=== PATIENT | female | born 1990 | race African-American/Black ===

== ENCOUNTER 2016-09-30 20:43 | Emergency (ER) | payer OTHER ==
[~2016-09-30 20:43] MED LIST: ANTI2TAB PO; ZOFR4TAB3 PO
[2016-09-30 20:45] VITALS: BP 119/73; PULSE 118; RESP 16; TEMP 102.8; O2SAT 100
[2016-09-30] MEDS ORDERED: IBUPROFEN 800 MG TAB PO ONE (22:45)
--- NOTE | 2016-09-30 22:54 | PD ---
HPI Chief Complaint: Cold / Flu Symptoms Time Seen by Provider: 22:52 Travel History International Travel<30 days: No Contact w/Intl Traveler<30days: No Traveled to known affect area: No History of Present Illness HPI Patient comes in complaining of flu like symptoms that began yesterday. Patient complaining of fever, body aches, ear pain, sore throat, and nausea. Patient denies any vomiting, abdominal pain, chest pain, shortness of breath, cough, loss or change in bowel or bladder, , headache, or numbness or tingling anywhere. Patient states that her son was sick with similar symptoms however he is better and now she is sick. Patient is been using over-the- counter flu medication with improvement of her body aches. Denies anything making it worse. PFSH Past Medical History Medical History: Denies Significant Hx Diminished Hearing: No ?: Not Past Surgical History Surgical History: No Previous Surgery Social History Alcohol Use: Yes (OCCASIONALLY ) Tobacco Use: No Substance Use: No Allergies-Medications (Allergen,Severity, Reaction): Coded Allergies: No Known Allergies (Unverified , 08/26/15) Reported Meds & Prescriptions Reported Meds & Active Scripts Active Bactrim DS (Sulfamethoxazole-Trimethoprim) 800-160 Mg Tab 1 Tab PO BID Anti-Diarrheal (Loperamide HCl) 2 Mg Tab 1 Tab PO Q4 PRN Take 2 tablets initially, then one tablet after each unformed stools, but not more than 8 tablets total a day. Do not take for more than 2 days. Zofran ODT (Ondansetron HCl) 4 Mg Tab 4 Mg PO Q6 PRN May substitute, non-ODT form Review of Systems Except as stated in HPI: all other systems reviewed are Neg Physical Exam Narrative GENERAL: Well-developed, well nourished, in no acute distress, and non-ill appearing. SKIN: Focused skin assessment warm and dry. HEAD: Atraumatic. Normocephalic. EYES: Pupils equal and round. EOMI. No scleral icterus. No injection or drainage. ENT: No nasal bleeding or discharge. Mucous membranes pink and moist. Tympanic membranes pearly benoit bilaterally. Posterior pharynx nonerythematous without exudate. Uvula is midline. No tenderness to facial sinuses to palpation. NECK: Trachea midline. No cervical lymphadenopathy. Supple. No nuclear rigidity. CARDIOVASCULAR: Regular rate and rhythm. No murmur appreciated. RESPIRATORY: No accessory muscle use. No respiratory distress. Clear to auscultation. Breath sounds equal bilaterally. MUSCULOSKELETAL: No obvious deformities. No clubbing. No cyanosis. No edema. Full range of motion. NEUROLOGICAL: Awake and alert. No obvious cranial nerve deficits. Motor grossly within normal limits. Normal speech. PSYCHIATRIC: Appropriate mood and affect; insight and judgment normal. Data Data Last Documented VS Vital Signs Date Time Temp Pulse Resp B/P Pulse Ox O2 Delivery O2 Flow Rate FiO2 10/01/16 01:20 99.8 96 18 10/01/16 00:10 115/59 100 Orders Ibuprofen (Motrin) (09/30/16 22:45) Urinalysis - C+S If Indicated (09/30/16 22:45) Group A Rapid Strep Screen (09/30/16 22:45) Influenzae A/B Antigen (09/30/16 23:11) Urine Culture (09/30/16 23:00) Strep Culture (Group A) (09/30/16 23:00) Sulfamet-Trimeth Ds 800-160 Mg (Bactrim (09/30/16 23:45) Ondansetron Odt (Zofran Odt) (10/01/16 00:15) Labs Laboratory Tests Test 09/30/16 23:00 Urine Color YELLOW Urine Turbidity HAZY Urine pH 6.0 Urine Specific [place] 1.038 Urine Protein 100 mg/dL Urine Glucose (UA) NEG mg/dL Urine Ketones 40 mg/dL Urine Occult Blood NEG Urine Nitrite POS Urine Bilirubin NEG Urine Urobilinogen 2.0 MG/DL Urine Leukocyte Esterase NEG Urine RBC 1 /hpf Urine WBC 3 /hpf Urine Squamous Epithelial 3 /hpf Cells Urine Transitional Epithelial <1 /hpf Cells Urine Bacteria MANY /hpf Urine Mucus MANY /lpf Microscopic Urinalysis Comment CULTURE INDICATED MDM Medical Decision Making Medical Screen Exam Complete: Yes Emergency Medical Condition: Yes Differential Diagnosis Influenza, pharyngitis, viral syndrome, UTI, other Narrative Course The patient presentation with history and evaluation are consistent with UTI. The patient looks great and is tolerating fluids. The patient was discharged on antibiotics and given warnings to return if condition worsens in any way, worsening fever, vomiting and unable to tolerate medications or fluids, back pain or as needed. The patient agrees with plan of care. There is no clinical evidence to suggest appendicitis, or vascular pathology ( AAA, etc.). The patient was instructed to follow up with their physician or return here in 12 first for recheck. Patient agreed with plan of care. Patient in no obvious distress upon re-evaluation. Reports she is feeling much better. All pertinent laboratory result(s) discussed with patient. Patient was asked if they wanted to speak to my attending, which the patient did not wish to do at this time. Discussed patient with Dr. Kay prior to discharge, who is in agreement with plan of care and disposition. Any questions/concerns in reference to patient diagnosis/condition discussed and clarified prior to patient's discharge. Reinforced sheer importance of close follow up with patient 's primary physician or primary care clinic or return here in 12-24 hours for recheck. Instructed patient to return to ED immediately, if symptoms return/ worsen. Pt showed understanding of above instructions. Further instructions and recommendations were detailed in discharge paperwork. Pt ambulated without difficulty out of ED at discharge. Diagnosis Primary Impression: Urinary tract infection Qualified Code: N30.00 - Acute cystitis without hematuria Patient Instructions: General Instructions, Urinary Tract Infection in Women ( ED) Additional Instructions: Follow-up with your primary care physician or return here in 12-24 hours for recheck. Take all medication as prescribed. Use [id number] Tylenol and ibuprofen as needed for pain and/or fever control. Follow instructions on the packaging. Drink plenty of of non-caffeinated and nonalcoholic fluids. Return to the emergency department sooner if symptoms get worse, unable to tolerate fluid, shortness breath, chest pain, abdominal pain, or for other concerns. Med/Other Pt SpecificInfo: Prescription(s) given Scripts Sulfamethoxazole-Trimethoprim (Bactrim DS)800-160 Mg Tab1 Tab PO BID #20 TAB Ref 0 Prov:Pat Kay DO 10/01/16 Disposition: 01 DISCHARGE HOME Condition: Stable Mario Turk Sep 30, 2016 22:54
[2016-09-30 23:31] LABS: BACTERIA, URINE MANY /hpf; BLOOD, URINE NEG (NEG); COMMENT (UR) CULTURE INDICATED; CULTURE IF INDICATED CULTURE INDICATED; GLUCOSE,URINE NEG (NEG); KETONE, URINE 40 mg/dL (NEG); MUCUS URINE MANY /lpf (OCC); NITRITE,URINE POS (NEG); SQUAMOUS EPITHELIAL CELL URINE 3 /hpf (0-5); TRANSITIONAL EPI CELLS, URINE <1 /hpf; URINE COLOR YELLOW (YELLW/STRAW)
[2016-09-30] MEDS ORDERED: SULFAMETHOXAZOLE-TRIMETHOPRIM DS 800-160 MG TAB PO ONE (23:45)
[2016-10-01 00:10] VITALS: BP 115/59; PULSE 106; RESP 18; TEMP 100; O2SAT 100
[2016-10-01] MEDS ORDERED: ONDANSETRON ODT 4 MG TAB PO ONE (00:15)
[2016-10-01] MEDS ORDERED: BACT800T5 PO (01:15)
[2016-10-01 01:20] VITALS: PULSE 96; RESP 18; TEMP 99.8
== END 2016-10-01 01:26 | disposition home or self-care (01) ==
LOC: NEPD 20:43
DX: N39.0 Urinary tract infection, site not specified (principal); H92.09 Otalgia, unspecified ear; J02.9 Acute pharyngitis, unspecified; R11.0 Nausea; Z79.899 Other long term (current) drug therapy
CPT/HCPCS: 81001; 87077; 87081; 87086; 87186; 87804; 87880; 99283

== ENCOUNTER 2016-10-03 12:41 | Emergency (ER) | payer OTHER ==
[~2016-10-03] VITALS: Ht 162.6 cm; Wt 68.0 kg
[~2016-10-03 12:41] MED LIST changes: +BACT800T5 PO
[2016-10-03 12:43] VITALS: BP 130/70; PULSE 124; RESP 17; TEMP 102; O2SAT 100
[2016-10-03] MEDS ORDERED: DEPO150I IM (13:52)
--- NOTE | 2016-10-03 13:54 | PD ---
HPI Chief Complaint: Complaint Time Seen by Provider: 13:53 Travel History International Travel<30 days: No Contact w/Intl Traveler<30days: No Traveled to known affect area: No History of Present Illness HPI 26-year-old female came to the emergency room with history of lower back pain radiating up to her neck. Patient says that she was in the emergency room couple days ago with lower back pain and feeling very sick. She was diagnosed with UTI and pyelonephritis. She was discharged home on Bactrim. She has taken 4 doses of it. She feels better compared to what she fell 2 days ago but the back pain still persists. Her temperature was 102. She appears to be in mild distress. No history of headache, neck stiffness, photophobia. She's been taking ibuprofen for her fever. [facility] Past Medical History Narrative Medical List of her past medical, surgical, social and family history was reviewed from the nursing note. Medical History: Denies Significant Hx Diminished Hearing: No ?: Not LMP: 2013 DEPO SHOT Para: 2 Past Surgical History Surgical History: No Previous Surgery Social History Alcohol Use: Yes (OCCASIONALLY ) Tobacco Use: No Substance Use: No Allergies-Medications (Allergen,Severity, Reaction): Coded Allergies: No Known Allergies (Unverified , 10/03/16) Comments No known drug allergies. Reported Meds & Prescriptions Reported Meds & Active Scripts Active Bactrim DS (Sulfamethoxazole-Trimethoprim) 800-160 Mg Tab 1 Tab PO BID Reported Depo-Provera Inj (Medroxyprogesterone Inj) 150 Mg/Ml Inj 150 Mg IM Q90D Narrative Medication List of her home medications reviewed from the nursing note. Review of Systems Except as stated in HPI: all other systems reviewed are Neg Physical Exam Narrative GENERAL: Awake, alert, mild distress SKIN: Focused skin assessment warm/dry. HEAD: Atraumatic. Normocephalic. EYES: Pupils equal and round. No scleral icterus. No injection or drainage. ENT: No nasal bleeding or discharge. Mucous membranes pink and moist. NECK: Trachea midline. No JVD. Neck is supple, no signs of meningismus or neck stiffness CARDIOVASCULAR: Regular rate and rhythm. No murmur appreciated. RESPIRATORY: No accessory muscle use. Clear to auscultation. Breath sounds equal bilaterally. GASTROINTESTINAL: Abdomen soft, non-tender, nondistended. Hepatic and splenic margins not palpable. Bilateral flank pain. MUSCULOSKELETAL: No obvious deformities. No clubbing. No cyanosis. No edema. NEUROLOGICAL: Awake and alert. No obvious cranial nerve deficits. Motor grossly within normal limits. Normal speech. PSYCHIATRIC: Appropriate mood and affect; insight and judgment normal. Data Data Last Documented VS Vital Signs Date Time Temp Pulse Resp B/P Pulse Ox O2 Delivery O2 Flow Rate FiO2 10/03/16 16:21 99 Room Air 10/03/16 16:21 87 18 10/03/16 16:07 92/65 10/03/16 12:43 102.0 Orders Complete Blood Count With Diff (10/03/16 14:08) Comprehensive Metabolic Panel (10/03/16 14:08) Lactic Acid Sepsis Protocol (10/03/16 14:08) Urinalysis - C+S If Indicated (10/03/16 14:08) Blood Culture (10/03/16 14:08) Chest, Single Ap (10/03/16 14:08) Blood Glucose (10/03/16 14:08) Ecg Monitoring (10/03/16 14:08) Iv Access Insert/Monitor (10/03/16 14:08) Oximetry (10/03/16 14:08) Oxygen Administration (10/03/16 14:08) Acetaminophen (Tylenol) (10/03/16 14:15) Sodium Chlor 0.9% 1000 Ml Inj (Ns 1000 M (10/03/16 14:15) Sodium Chlor 0.9% 1000 Ml Inj (Ns 1000 M (10/03/16 14:15) Potassium Chloride Eff (K-Lyte Cl Eff) (10/03/16 15:45) Influenzae A/B Antigen (10/03/16 15:53) Labs Laboratory Tests Test 10/03/16 10/03/16 14:48 16:00 White Blood Count 2.3 TH/MM3 Red Blood Count 3.95 MIL/MM3 Hemoglobin 13.4 GM/DL Hematocrit 38.4 % Mean Corpuscular Volume 97.2 FL Mean Corpuscular Hemoglobin 34.0 PG Mean Corpuscular Hemoglobin 35.0 % Concent Red Cell Distribution Width 12.3 % Platelet Count 169 TH/MM3 Mean Platelet Volume 7.2 FL Neutrophils (%) (Auto) 58.6 % Lymphocytes (%) (Auto) 25.0 % Monocytes (%) (Auto) 16.2 % Eosinophils (%) (Auto) 0.0 % Basophils (%) (Auto) 0.2 % Neutrophils # (Auto) 1.4 TH/MM3 Lymphocytes # (Auto) 0.6 TH/MM3 Monocytes # (Auto) 0.4 TH/MM3 Eosinophils # (Auto) 0.0 TH/MM3 Basophils # (Auto) 0.0 TH/MM3 CBC Comment DIFF FINAL Differential Comment Sodium Level 138 MEQ/L Potassium Level 3.4 MEQ/L Chloride Level 107 MEQ/L Carbon Dioxide Level 22.1 MEQ/L Anion Gap 9 MEQ/L Blood Urea Nitrogen 8 MG/DL Creatinine 0.87 MG/DL Estimat Glomerular Filtration 95 ML/MIN Rate Random Glucose 67 MG/DL Lactic Acid Level 0.8 mmol/L Calcium Level 8.3 MG/DL Total Bilirubin 0.2 MG/DL Aspartate Amino Transf 24 U/L (AST/SGOT) Alanine Aminotransferase 34 U/L (ALT/SGPT) Alkaline Phosphatase 70 U/L Total Protein 7.3 GM/DL Albumin 3.5 GM/DL Urine Color YELLOW Urine Turbidity CLEAR Urine pH 6.5 Urine Specific [place] 1.023 Urine Protein 30 mg/dL Urine Glucose (UA) NEG mg/dL Urine Ketones 10 mg/dL Urine Occult Blood NEG Urine Nitrite NEG Urine Bilirubin NEG Urine Urobilinogen 4.0 MG/DL Urine Leukocyte Esterase NEG Urine WBC 1 /hpf Urine Squamous Epithelial <1 /hpf Cells Urine Mucus FEW /lpf Microscopic Urinalysis Comment CATH-CULT NOT IND MDM Medical Decision Making Medical Screen Exam Complete: Yes Emergency Medical Condition: Yes Medical Record Reviewed: Yes Differential Diagnosis Pyelonephritis, dehydration, outpatient treatment failure Narrative Course 2:22 PM I looked at her urine culture that was done from couple days ago. It grew Escherichia coli and was sensitive to Bactrim. However the fact that patient still continues to have fever is little bit worrisome. Although it has been 48 hours since patient has been taking antibiotics and admitted take almost 72 hours in case of UTI to get better. However I have ordered blood test and UA. Awaiting for those test to be done and resulted. Patient is getting IV fluid as well. 3:52 PM blood test result is back and patient has leukopenia with elevated monocyte count. Her potassium is slightly low. I replaced the potassium. Patient is getting IV fluid bolus. Awaiting for the UA. 4:53 PM UA is negative. I'll ask her to finish the Bactrim. She may have some additional viral illness. She has received 2 L of IV fluid bolus and I'm comfortable with that. Patient will be discharged home. Procedures EKG Prior to Arrival: No Diagnosis Primary Impression: Viral illness Additional Impression: Fever Qualified Code: R50.9 - Fever, unspecified fever cause Referrals: Primary Care Physician 3 days Additional Instructions: Please return to the ER over the weekend if the symptoms worsen or any other new concerns. Otherwise follow-up with your primary care doctor on Thursday. Finish the course of the Bactrim. Take Motrin/Tylenol/ibuprofen/Advil for fever. Med/Other Pt SpecificInfo: No Change to Meds Disposition: 01 DISCHARGE HOME Condition: Stable Sachin Alexis MD Oct 03, 2016 13:54
[2016-10-03] MEDS ORDERED: ACETAMINOPHEN 325 MG TAB PO ONE (14:15)
[2016-10-03] MEDS ORDERED: SODIUM CHLOR 0.9% 1000 ML INJ 1,000 ML IV ONE ×2 (14:15)
--- NOTE | 2016-10-03 14:57 | RADRPT ---
EXAM DATE/TIME: 10/03/2016 14:21 [place] COMPARISON: No previous studies available for comparison. INDICATIONS : Back pain, no known trauma MEDICAL HISTORY : None. SURGICAL HISTORY : None. ENCOUNTER: Initial ACUITY: 4 - 6 days PAIN SCORE: 8/10 LOCATION: Bilateral chest FINDINGS: Portable AP view of the chest demonstrates a normal-sized cardiac silhouette. No effusion, consolidat ion, or pneumothorax is visualized. The bones and soft tissues demonstrate no acute abnormality. Ther e is a single left nipple piercing. CONCLUSION: Normal single view chest x-ray. Josh Duran MD on October 03, 2016 at 14:54 Board Certified Radiologist. This report was verified electronically.
[2016-10-03 15:09] LABS: AUTOMATED NEUTROPHIL # 1.4 TH/MM3 (1.8-7.7); BASOPHIL % 0.2 % (0.0-2.0); HEMATOCRIT 38.4 % (35.0-46.0); HEMO FLAGS DIFF FINAL; LYMPHOCYTE # 0.6 TH/MM3 (1.0-4.8); MEAN CELL VOLUME 97.2 FL (80.0-100.0); MONO % 16.2 % (0.0-8.0); NEUT % 58.6 % (16.0-70.0); PLATELET COUNT 169 TH/MM3 (150-450); RED BLOOD COUNT 3.95 MIL/MM3 (4.00-5.30); RED CELL DISTRIBUTION WIDTH 12.3 % (11.6-17.2); WHITE BLOOD COUNT 2.3 TH/MM3 (4.0-11.0)
[2016-10-03 15:34] LABS: ALT (GPT) 34 U/L (10-53); ANION GAP 9 MEQ/L (5-15); AST (GOT) 24 U/L (15-37); BICARBONATE 22.1 MEQ/L (21.0-32.0); BLOOD UREA NITROGEN 8 MG/DL (7-18); CHLORIDE 107 MEQ/L (98-107); GLOMERULAR FILTRATION RATE 95 ML/MIN (>89); POTASSIUM 3.4 MEQ/L (3.5-5.1); SODIUM (NA) 138 MEQ/L (136-145)
[2016-10-03 15:37] LABS: ALKALINE PHOSPHATASE 70 U/L (45-117); TOTAL BILIRUBIN ADULT 0.2 MG/DL (0.2-1.0)
[2016-10-03] MEDS ORDERED: POTASSIUM CHLORIDE 25 MEQ EFFERVESCENT TAB PO ONE (15:45)
[2016-10-03 16:07] VITALS: BP 92/65; PULSE 87; RESP 21; O2SAT 99
[2016-10-03 16:21] VITALS: PULSE 87; RESP 18; O2SAT 99
[2016-10-03 16:40] LABS: BLOOD, URINE NEG (NEG); GLUCOSE,URINE NEG (NEG); KETONE, URINE 10 mg/dL (NEG); MUCUS URINE FEW /lpf (OCC); NITRITE,URINE NEG (NEG); PH, URINE 6.5 (5.0-8.5); SQUAMOUS EPITHELIAL CELL URINE <1 /hpf (0-5); URINE COLOR YELLOW (YELLW/STRAW)
[2016-10-03 16:52] LABS: COMMENT (UR) CATH-CULT NOT IND; CULTURE IF INDICATED CATH CULTURE NOT IND
== END 2016-10-03 17:18 | disposition home or self-care (01) ==
LOC: NEPD 12:41
DX: B34.9 Viral infection, unspecified (principal); R50.9 Fever, unspecified
CPT/HCPCS: 71010; 80053; 81001; 83605; 85025; 87040; 87804; 96360; 99284; J7030